=== PATIENT | male | born 1995 | race Native Hawaiian/Other Pacific Islander ===

== ENCOUNTER 2022-06-22 19:30 | Inpatient (IN) | payer MEDICAID ==
[~2022-06-22] VITALS: Ht 185.4 cm; Wt 72.4 kg
[2022-06-22] MEDS ORDERED: SODIUM CHLORIDE 0.9% 1,000 ML IV ONE ×2 (19:45)
[2022-06-22 20:27] LABS: Urine Bacteria NONE SEEN /hpf (None Seen); Urine Blood Negative /uL (Negative); Urine Hyaline Cast FEW /lpf (0 - 2); Urine Mucus FEW (None Seen); Urine Specific Gravity 1.024 (1.001-1.035); Urine WBC 18 /hpf (0 - 3)
[2022-06-22 20:41] LABS: Basophils # (auto) 0.1 10 ^3/uL (0-0.2); Basophils % (auto) 0.6 % (0.0-2.0); Eosinophils # (auto) 0 10 ^3/uL (0-0.8); Eosinophils % (auto) 0.1 % (0.0-7.0); Hematocrit 45.1 % (41.0-53.0); Hemoglobin 14.3 g/dL (13.5-17.5); Lymphocytes # (auto) 1.8 10 ^3/uL (0.4-5.4); Lymphocytes % (auto) 13.2 % (10.0-50.0); Mean Corpuscular Hemoglobin 29.2 pg (28.0-32.0); Mean Corpuscular Hgb Conc. 31.8 g/dL (32.0-36.0); Mean Corpuscular Volume 91.8 fL (80.0-100.0); Monocytes # (auto) 0.4 10 ^3/uL (0-1.3); Monocytes % (auto) 2.9 % (0.0-12.0); Neutrophils # (auto) 11.7 10 ^3/uL (1.6-8.6); Neutrophils % (auto) 83.2 % (37.0-80.0); Nucleated Red Blood Cells % 0.2 %; Red Blood Cells 4.91 10^6/uL (4.5-5.90); Red Cell Distribution Width 13.9 % (11.8-14.3)
[2022-06-22] MEDS ORDERED: METOCLOPRAMIDE HCL 5MG/ml INJ 2ml VIAL IV ONE (20:45)
[2022-06-22 20:58] LABS: Albumin 3.6 g/dL (3.4-5.0); Calcium 9.3 mg/dL (8.5-10.1); Potassium 4.8 mmol/L (3.5-5.1)
[2022-06-22 21:01] LABS: Lactic Acid w/Reflex 2.8 mmol/L (0.4-2.0)
[2022-06-22 21:02] LABS: Bilirubin, Total 0.7 mg/dL (0.2-1.0); Total Protein 7.9 g/dL (6.4-8.2)
[2022-06-22] MEDS ORDERED: LACTATED RINGER'S 1,000 ML IV ONE ×2 (21:30)
[2022-06-22 21:41] LABS: BUN/Creatinine Ratio 13.7
[2022-06-22] MEDS: ACCU-CHEK COMFORT CURVE STRIP VI SCH ×2 (21:58→23:44)
[2022-06-22] MEDS ORDERED: DEXTROSE (50%) 50ML SYRG IV PRN (22:00)
[2022-06-22] MEDS ORDERED: INSULIN LANTUS (GLARGINE) 1 /0.01ml (100units/ml) SC ONE (22:00)
[2022-06-22] MEDS ORDERED: InsuLIN R (HUMAN) 100 UNITS in SODIUM CHL 0.9% 99 ML IV SCH (22:00)
[2022-06-22] MEDS ORDERED: POTASSIUM CHL 20MEQ/100ML 100 ML IV ONE (22:00)
[2022-06-22] MEDS ORDERED: InsuLIN REG 1unit/0.01ml Soln (100units/ml) ONE (22:04)
[2022-06-22] MEDS ORDERED: VANCOMYCIN 1GM/250ML 250 ML IV ONE (23:45)
[2022-06-23] MEDS ORDERED: VANCOMYCIN PER PHARMACY 0 MG IV SCH
[2022-06-23] MEDS ORDERED: MORPHINE SULFATE INJ 2 MG/ml SYRG IV PRN
[2022-06-23] MEDS ORDERED: DOCUSATE SOD 100 MG CAP PO PRN
[2022-06-23] MEDS ORDERED: cefTRIAXone 1GM/50ML D5W 50 ML IV ONE
[2022-06-23] MEDS ORDERED: ONDANSETRON HCL 4 MG/2 ML VIAL IV PRN
[2022-06-23] MEDS ORDERED: ACETAMINOPHEN 325 MG TAB PO PRN
[2022-06-23] MEDS ORDERED: NITROGLYCERIN 0.4 MG SL TAB SL PRN
[2022-06-23] MEDS: SODIUM CHLORIDE 0.9% 1,000 ML IV SCH ×2 (01:19→09:51)
[2022-06-23] MEDS: ACCU-CHEK COMFORT CURVE STRIP VI SCH ×18 (01:31→22:43)
[2022-06-23] MEDS: MORPHINE SULFATE INJ 2 MG/ml SYRG IV PRN ×3 (05:10→22:56)
[2022-06-23 05:25] LABS: Basophils # (auto) 0 10 ^3/uL (0-0.2); Basophils % (auto) 0.4 % (0.0-2.0); Eosinophils # (auto) 0 10 ^3/uL (0-0.8); Eosinophils % (auto) 0.3 % (0.0-7.0); Hematocrit 36.6 % (41.0-53.0); Hemoglobin 12.3 g/dL (13.5-17.5); Lymphocytes # (auto) 1.7 10 ^3/uL (0.4-5.4); Lymphocytes % (auto) 15.1 % (10.0-50.0); Mean Corpuscular Hemoglobin 29.4 pg (28.0-32.0); Mean Corpuscular Hgb Conc. 33.7 g/dL (32.0-36.0); Mean Corpuscular Volume 87.4 fL (80.0-100.0); Monocytes # (auto) 0.7 10 ^3/uL (0-1.3); Monocytes % (auto) 6.6 % (0.0-12.0); Neutrophils # (auto) 8.6 10 ^3/uL (1.6-8.6); Neutrophils % (auto) 77.6 % (37.0-80.0); Red Blood Cells 4.19 10^6/uL (4.5-5.90); Red Cell Distribution Width 13.8 % (11.8-14.3); White Blood Cell 11.1 10^3/uL (4.4-10.8)
[2022-06-23 05:51] LABS: Potassium 3.8 mmol/L (3.5-5.1)
[2022-06-23 06:02] LABS: Albumin 2.8 g/dL (3.4-5.0); BUN/Creatinine Ratio 16.3; Bilirubin, Total 0.6 mg/dL (0.2-1.0); Calcium 7.7 mg/dL (8.5-10.1); Total Protein 6.5 g/dL (6.4-8.2)
[2022-06-23] MEDS: HYDROcodone-ACET 5/325MG TAB PO PRN ×3 (09:00→22:40)
[2022-06-23] MEDS: INSULIN LANTUS (GLARGINE) 1 /0.01ml (100units/ml) SC SCH (10:01)
[2022-06-23] MEDS ORDERED: DEXTROSE (50%) 50ML SYRG IV PRN (11:00)
[2022-06-23] MEDS: InsuLIN REG 1unit/0.01ml Soln (100units/ml) SC SCH ×3 (11:30→23:01)
[2022-06-23 13:19] LABS: Calcium 7.5 mg/dL (8.5-10.1); Potassium 3.5 mmol/L (3.5-5.1)
[2022-06-23 13:23] LABS: BUN/Creatinine Ratio 18.1 (10.0-20.0); Phosphorus 1.5 mg/dL (2.5-4.90)
[2022-06-23] MEDS ORDERED: SODIUM CHLORIDE 0.9% 1,000 ML IV ONE (14:15)
[2022-06-23] MEDS ORDERED: POTASSIUM PHOSPHATE 44 MEQ in D5W 5% 250 ML IV ONE (16:00)
[2022-06-23] MEDS: cefTRIAXone 1GM/50ML D5W 50 ML IV SCH (22:40)
[2022-06-23] MEDS ORDERED: INSU100I44 SC (23:02)
[2022-06-23] MEDS ORDERED: INSU1INJ19 SC (23:02)
[2022-06-24 04:50] VITALS: BP 145/98
[2022-06-24 05:47] LABS: Basophils # (auto) 0 10 ^3/uL (0-0.2); Basophils % (auto) 0.6 % (0.0-2.0); Eosinophils # (auto) 0.1 10 ^3/uL (0-0.8); Eosinophils % (auto) 2.2 % (0.0-7.0); Hematocrit 35.4 % (41.0-53.0); Hemoglobin 12.2 g/dL (13.5-17.5); Lymphocytes # (auto) 1.6 10 ^3/uL (0.4-5.4); Mean Corpuscular Hgb Conc. 34.4 g/dL (32.0-36.0); Monocytes # (auto) 0.2 10 ^3/uL (0-1.3); Monocytes % (auto) 3.8 % (0.0-12.0); Neutrophils # (auto) 4.4 10 ^3/uL (1.6-8.6); Neutrophils % (auto) 68.4 % (37.0-80.0); Red Blood Cells 4.07 10^6/uL (4.5-5.90); Red Cell Distribution Width 13.6 % (11.8-14.3); White Blood Cell 6.4 10^3/uL (4.4-10.8)
[2022-06-24] MEDS: ACCU-CHEK COMFORT CURVE STRIP VI SCH ×4 (06:06→21:13)
[2022-06-24] MEDS: SODIUM CHLORIDE 0.9% 1,000 ML IV SCH ×2 (06:06→16:19)
[2022-06-24] MEDS: MORPHINE SULFATE INJ 2 MG/ml SYRG IV PRN ×3 (06:08→17:26)
[2022-06-24] MEDS: InsuLIN REG 1unit/0.01ml Soln (100units/ml) SC SCH ×4 (06:08→21:14)
[2022-06-24 06:14] LABS: Magnesium 1.9 mg/dL (1.6-2.6); Potassium 3.7 mmol/L (3.5-5.1)
[2022-06-24 06:18] LABS: Calcium 7.6 mg/dL (8.5-10.1); Phosphorus 2.9 mg/dL (2.5-4.90)
[2022-06-24 09:10] VITALS: BP 117/89
[2022-06-24] MEDS: INSULIN LANTUS (GLARGINE) 1 /0.01ml (100units/ml) SC SCH (11:30)
[2022-06-24 12:35] VITALS: BP 118/86
[2022-06-24] MEDS ORDERED: INSU1INJ19 SC (14:15)
[2022-06-24] MEDS ORDERED: CEPH-511 PO (14:17)
[2022-06-24] MEDS ORDERED: ONDA-144 PO (14:17)
[2022-06-24 17:00] VITALS: BP 135/91
[2022-06-24] MEDS: cefTRIAXone 1GM/50ML D5W 50 ML IV SCH (21:13)
[2022-06-24 22:00] VITALS: BP 136/102
[2022-06-25] MEDS: SODIUM CHLORIDE 0.9% 1,000 ML IV SCH (02:00)
[2022-06-25 05:00] VITALS: BP 113/92
[2022-06-25] MEDS: ACCU-CHEK COMFORT CURVE STRIP VI SCH ×2 (06:13→12:36)
[2022-06-25] MEDS: InsuLIN REG 1unit/0.01ml Soln (100units/ml) SC SCH ×2 (06:13→12:47)
[2022-06-25 09:03] VITALS: BP_SYST 105; BP_SYST 99; BP_DIAS 52; BP_DIAS 75
[2022-06-25] MEDS: INSULIN LANTUS (GLARGINE) 1 /0.01ml (100units/ml) SC SCH (09:30)
[2022-06-25 11:55] VITALS: BP 106/74
[2022-06-25 13:07] VITALS: BP 106/74
== END 2022-06-25 15:25 | disposition home or self-care (01) | DRG 720 ==
LOC: ER 19:30 → EDBD 19:30 → TELE 23:50 → CENTRAL 06-23 22:10
PROVIDERS: ADMIT Nurse Practitioner Family; ATTEND Internal Medicine
DX: A41.9 Sepsis, unspecified organism (principal); N17.0 Acute kidney failure with tubular necrosis; E44.0 Moderate protein-calorie malnutrition; E10.10 Type 1 diabetes mellitus with ketoacidosis without coma; E87.1 Hypo-osmolality and hyponatremia; N30.00 Acute cystitis without hematuria; Z68.21 Body mass index [BMI] 21.0-21.9, adult; Z20.822 Contact with and (suspected) exposure to COVID-19
CPT/HCPCS: 36415; 36600; 71045; 80048; 80053; 80061; 81001; 82010; 82805; 82962; 83036; 83605; 83690; 83735; 84100; 84443; 85025; 87040; 87086; 87426; 93005; 96361; 96365; 96367; 96368; 96372; 96375; 99291; G0378; J0696; J1815; J2405; J3480; J7060